=== PATIENT | male | born 1950 | race American Indian/Alaskan Native ===

== ENCOUNTER 2017-01-16 14:48 | Day surgery (SDC) | payer OTHER ==
--- NOTE | 2017-01-16 11:58 | Progress Note ---
Assessment and Plan large BM adv diet ngt out ok to floor Subjective Date of service: 01/16/17 Principal diagnosis: bladder cancer Objective - Constitutional General appearance: Present: no acute distress - Neck Neck: supple - Respiratory Respiratory effort: normal Extremities: no ischemia - Gastrointestinal General gastrointestinal: Present: soft, non-tender
[~2017-01-16 14:48] MED LIST: ANCEF/STERILE WATER 2 GM/20 ML 2 GM/20 ML SYRINGE IV NR; APRESOLINE PO PRN; GARAMYCIN 120 MG in NACL 0.9% 100 ML IV SCH; GARAMYCIN/NS 120MG/100ML 120 MG/100 ML BAG IV SCH; NACL 0.9% 1000 ML 1,000 ML IV SCH; PEPCID PO NR
[2017-01-16] MEDS ORDERED: NACL BACTERIOSTATIC INFILTRATI ONE (15:12)
[2017-01-16] MEDS ORDERED: ZOFRAN IV PRN ×2 (15:14→18:40)
[2017-01-16] MEDS ORDERED: SUBLIMAZE IV PRN (15:14)
--- NOTE | 2017-01-16 15:16 | Anesthesia Day of Surgery ---
Anesthesia Day of Surgery - Day of Surgery Patient Examined: Yes Patient H&P Reviewed: Yes Patient is NPO: Yes Beta Blockers: No Cardiac Clearance: No Pulmonary Clearance: No
--- NOTE | 2017-01-16 15:17 | Anesthesia Consultation ---
Anesthesia Consult and Med Hx Date of service: 01/16/17 - Airway Anesthetic Teeth Evaluation: Good ROM Head & Neck: Adequate Mental/Hyoid Distance: Adequate Mallampati Class: Class II Intubation Access Assessment: Probably Good - Pulmonary Exam CTA: Yes (clear blbs) - Cardiac Exam Cardiac Exam: RRR - Pre-Operative Health Status ASA Pre-Surgery Classification: ASA4 Proposed Anesthetic Plan: General, MAC - Pulmonary Hx Smoking: Yes (STOPPED X 30 YRS,1/2 PPD X 6 YRS) Hx Sleep Apnea: No (DANIELLE PRE SCREEN HIGH RISK) - Cardiovascular System Hx Hypertension: Yes (X 15 YRS) - Endocrine Hx End Stage Renal Disease: Yes (HEMO M,W,F AND PD E,) - Hematic Hx Anemia: Yes - Other Systems Hx Cancer: No
[2017-01-16 15:48] LABS: Basophils % (Auto) 1.2 % (0.0-1.8); Eosinophils % (Auto) 3.3 % (0.0-4.3); Hematocrit 37.6 % (35.5-45.6); Hemoglobin 12.3 gm/dl (11.8-15.2); Mean Corpuscular HGB Conc 33 % (32-34); Mean Corpuscular Hemoglobin 29 pg (28-32); Mean Corpuscular Volume 90 fl (84-94); Platelet Count 247 K/mm3 (140-440); Red Blood Count 4.18 M/mm3 (3.65-5.03); Red Cell Distribution Width 15.4 % (13.2-15.2); White Blood Count 4.4 K/mm3 (4.5-11.0)
[2017-01-16] MEDS ORDERED: DIPRIVAN 10 MG/ML IV ONE ×2 (15:52→16:21)
[2017-01-16] MEDS ORDERED: SUBLIMAZE ONE (15:53)
[2017-01-16] MEDS ORDERED: GARAMYCIN/NS 120MG/100ML 120 MG/100 ML BAG IV SCH (16:00)
[2017-01-16 16:15] LABS: BUN/Creatinine Ratio 5.79
[2017-01-16 16:16] LABS: Chloride 96.3 mmol/L (98-107); Potassium 3.5 mmol/L (3.6-5.0)
[2017-01-16] MEDS ORDERED: ePHEDrine SULFATE ONE (16:32)
[2017-01-16] MEDS ORDERED: ZOFRAN ONE (16:44)
[2017-01-16] MEDS ORDERED: XYLOCAINE MPF 2% ONE (16:44)
--- NOTE | 2017-01-16 17:17 | Post Operative Note ---
Date of procedure: 01/16/17 Pre-op diagnosis: inc psa Post-op diagnosis: same Findings: small hypoechoic zone L Procedure: flex cysto pus bx US Anesthesia: GETA Surgeon: CORBIN ARTEAGA Estimated blood loss: minimal Pathology: list (prostate) Specimen disposition: to lab Condition: stable Disposition: PACU
--- NOTE | 2017-01-16 17:19 | Discharge Summary ---
Short Stay Discharge Plan Activity: other (no straining ) Weight Bearing Status: Full Weight Bearing Diet: regular, low fat, low salt Special Instructions: other (inc fluids ) Follow up with: SHAHRAM BRUNNER MD [Primary Care Provider] - 7 Days CORBIN ARTEAGA MD [Staff Physician] - 7 Days
--- NOTE | 2017-01-16 17:46 | Operative Report ---
PREOPERATIVE DIAGNOSIS: Elevated PSA lesion on MRI. POSTOPERATIVE DIAGNOSIS: Elevated PSA lesion on MRI. PROCEDURE: Ultrasound-guided prostate biopsy and flexible cystoscopy. SURGEON: Sacha Sapp M.D. ANESTHESIA: General. FINDINGS: This is a gentleman with elevated PSA. MRI showed a lesion of 1.7 cm from the apex and 1 cm from the lateral capsule on the left side. He now presents for treatment. He did not want to have this in the office. doing this on ultrasound, there was a long wait and I gave him all the options. DESCRIPTION OF PROCEDURE: The patient was brought to the operating room and placed on the operating table. Following induction of anesthesia, placed in the left side lateral decubitus position, prepped and draped in usual sterile fashion. We used Betadine for the rectum and at this point, the prostate showed excellent visualization. We measured the prostate approximately 25 grams and excellent visualization was achieved. We focused initially on the left side and cm from the lateral capsule, 1.7 cm from the apex. Biopsies were done on the left side and right side. The patient tolerated the procedure well. Flexible cystoscopy showed no urethral injury. There was no significant bleeding. The patient tolerated the procedure well. No lesions were noted. He was brought to recovery in stable condition. JOB# [id number] RIN/GAURAV
--- NOTE | 2017-01-16 18:40 | Post Anesthesia Evaluation ---
- Post Anesthesia Evaluation Patient Participated: Yes Airway Patent: Yes Stable Respiratory Function: Yes Nausea/Vomiting: No Temp > 96.8F: Yes Pain Manageable: Yes Adequeate Hydration: Yes Anesthesia Complications: No Block Receding Appropriately: Not Applicable Patient on Ventilator: No
[2017-01-16] MEDS: DILAUDID IV PRN ×2 (18:45→18:55)
[2017-01-16 20:54] VITALS: BP 129/80
[2017-01-16] MEDS ORDERED: ZOCOR PO SCH (22:00)
--- NOTE | 2017-01-17 01:40 | Admit Criteria Form ---
Admission Criteria Documentation: AMBULATORY SURGERY EXCEPTION CRITERIA Ambulatory Surgery Exception Criteria ( Place 'X' for any and all applicable criteria): Surgery or procedure performed on ambulatory basis may require inpatient stay for[A] ANY ONE of the following(1)(2)(3)(4)(5)(6)(7)(8)(9): [X] I. A preoperative situation, condition, or finding that warrants inpatient stay as indicated by ANY ONE of the following: [] a) Inpatient care needed because of severity of a disease or condition rather than the surgery (eg, severe cardiac or respiratory disease, severe infection) (15) (16 ) (17) (18) [] b) Emergent procedure (eg, angioplasty for acute ischemia)(19) [] c) Complex surgical approach or situation as indicated by ANY ONE of the following(3): [] i) Open approach needed instead of usual endoscopic, transcatheter, or other less invasive procedure [] ii) Difficult approach because of previous operation [] iii) Airway monitoring required after open neck procedures(20)(21) [] iv) Large mass requiring unusually extensive dissection [] v) Additional complicating feature requiring inpatient care (eg, drain management)(22(23): [X] d) Major surgery in a pt with high anesthetic risk as indicated by ANY ONE of the following (2)(3)(5)(7)(8): [X] i) ASA risk class III or higher (severe systemic disease impairing function) [D] [] ii) Advanced age (eg, older than 85 years)(14)(24) [] iii) Symptomatic heart failure(25) [] iv) Symptomatic asthma or COPD(8)(21) [] v) Morbid obesity with hemodynamic or respiratory problems(20)( 21)(26)(27) [] vi) Obstructive sleep apnea(20)(21) [] vii) Former premature infants who are younger than 60 weeks [] viii) High risk for severe postoperative abnormalities (eg, severe postoperative hypocalcemia after parathyroidectomy for severe hyperparathyroidism)(27)( 28) [] ix) Unstable angina(25) [] e) Drug-related risk requiring inpatient stay as indicated by ANY ONE of the following(5)(10)(14)(32)(33) [] i) Procedure requires discontinuing drugs or other therapy (eg , antiarrhythmic medication, antiseizure medication), which necessitates inpatient observation or treatment.(18)(31) [] ii) Major surgery and high risk drug use as indicated by ANY ONE of the following: [] 1) Active abuse of cocaine or similar drug [] 2) Monoamine oxidase inhibitor use [] 3) Other drug identified as posing risk [] f) Inadequate outpatient care situation as indicated by ANY ONE of the following(5)(10)(14)(32)(33) [] i) Patient lives remote from medical facility and procedure has urgent complication potential, and temporary nearby residence cannot be arranged [] ii) Patient will have postprocedure incapacitation and inadequate assistance at home, or alternative level of care cannot be arranged. [] iii) Patient will have long general anesthesia or procedure side effect resolution time, and competent person to stay with patient on first postoperative night at home or alternative level of care cannot be arranged. []iv) Other inadequate outpatient situation that cannot be handled by other means [] II. A perioperative event, condition, or finding that warrants inpatient stay as indicated by ANY ONE of the following (1)(2)(3): [] a) Inadequate physiologic recovery: cardiovascular, respiratory, or hemodynamic status not normal or near preoperative baseline(18) [] b) Hemodynamic instability [] c) Patient not alert with near normal or baseline mental status [] d) Temperature not normal or as expected and not appropriate for outpatient treatment of condition [] e) Ambulatory or appropriate activity level status not yet achieved post procedure [E](34)(35)(36) [] f) Operative site not appropriate (eg, unexpected or excessive drainage or bleeding) [] g) Postoperative effects not resolved or adequately managed (eg, significant pain or vomiting not appropriate for outpatient or next level of care)(10)(12) [] h) Complicating features requiring inpatient care as indicated by ANY ONE of the following(37): [] i) Severe complications of procedure (eg, bowel injury, airway compromise, vascular injury,severe hemorrhage) [] ii) Extensive (eg, dissection far beyond usual scope of procedure ) or prolonged (eg, 120 minutes beyond usual) surgery needed requiring inpatient postoperative care [] iii) Conversion to an open or complex procedure that requires inpatient care (eg, open vs laparoscopic cholecystectomy, abdominal vs vaginal hysterectomy)(38) [] iv) Comorbid condition or test result identified during or post procedure that requires inpatient care (7) [] v) Malignant hyperthermia(30) [] vi) Other complicating feature requiring inpatient care(22)(23) Inpatient stay may be needed until ALL of the following are present (1)(2)(3)(4) (5)(6)(10)(14)(33)(40): []a) Physiologic recovery: cardiovascular, respiratory, and hemodynamic status normal or near preoperative baseline []b) Hemodynamic stability []c) Patient alert, with near normal or baseline mental status []d) Temperature appropriate: patient afebrile or temperature appropriate for outpt treatment of condition []e) Activity level appropriate: ambulatory or appropriate activity level post procedure []f) Operative site appropriate as indicated by ALL of the following: []i) Site dry or with expected drainage []ii) Any blood noted is as expected for procedure. []g) Postoperative effects resolved or managed as indicated by ALL of the following: []i) Pain management appropriate for outpatient (or next level of) care(10) []ii) Minimal nausea and vomiting: if present, successfully treated with oral medication(12) []iii) Headache, dizziness, or drowsiness (if present) are mild. []h) Voiding status acceptable as indicated by ANY ONE of the following: []i) Voiding spontaneously []ii) No voiding but instructions given for follow-up in 6 to 8 hours []iii) Urinary catheter in place, and instructions given for follow-up []i) Complicating features requiring inpatient care manageable at a lower level of care(37) []j) Comorbid conditions manageable at a lower level of care(37) The original [employer] content created by [employer] has been revised. The portions of the content which have been revised are identified through the use of italic text or in bold, and [employer] has neither reviewed nor approved the modified material. All other unmodified content is copyright [employer]. Please see references footnoted in the original [employer] edition 2016 Admission Criteria Met: Yes
--- NOTE | 2017-01-17 08:19 | Ultrasound Report ---
ULTRASOUND-GUIDED INTRAOPERATIVE History: Prostate biopsy, elevated PSA. Findings: Transrectal ultrasound guidance was provided by radiology during prostate biopsy by Dr. Sapp. 6 images were captured. Prostate volume measures 22.7 cc. Impression: Successful ultrasound guidance for prostate biopsy.
[2017-01-17] MEDS ORDERED: NORVASC PO SCH (10:00)
== END 2017-01-16 20:10 | disposition home or self-care (01) ==
LOC: OR 14:48
PROVIDERS: ATTEND Urology
DX: R97.20 Elevated prostate specific antigen [PSA] (principal); N42.89 Other specified disorders of prostate; I12.0 Hypertensive chronic kidney disease with stage 5 chronic kidney disease or end stage renal disease; N18.6 End stage renal disease; D64.9 Anemia, unspecified; Z99.2 Dependence on renal dialysis; Z87.891 Personal history of nicotine dependence
CPT/HCPCS: 36415; 52000; 55700; 76998; 80048; 85025; 88305; J0690; J1170; J1580; J2405; J2704; J3010; J7030